=== PATIENT | female | born 1965 | race Caucasian/White ===

== ENCOUNTER 2020-02-12 18:40 | Emergency (ER) | payer BC ==
[~2020-02-12] VITALS: Ht 160 cm; Wt 78.9 kg
[2020-02-12] MEDS ORDERED: LIPITOR 40 MG T40 M1 PO (18:45)
[2020-02-12] MEDS ORDERED: TRIAMTERENE/HCT1 CA1 PO (18:45)
[2020-02-12] MEDS ORDERED: DULOXETINE HCL60 MG PO (18:45)
[2020-02-12] MEDS ORDERED: METOPROLOL SUCC50 MG PO (18:45)
[2020-02-12] MEDS ORDERED: OMEPRAZOLE40 MG PO (18:45)
[2020-02-12] MEDS ORDERED: ALPRAZOLAM1 MG PO (18:46)
[2020-02-12] MEDS ORDERED: VYVANSE60 MG PO (18:46)
[2020-02-12] MEDS ORDERED: IBUPROFEN 600600 M1 PO (20:34)
[2020-02-12 20:40] VITALS: BP 133/55
== END 2020-02-12 20:40 | disposition home or self-care (01) ==
LOC: ER 18:40
DX: S80.211A Abrasion, right knee, initial encounter (principal); S50.311A Abrasion of right elbow, initial encounter; S60.511A Abrasion of right hand, initial encounter; M79.672 Pain in left foot; I10 Essential (primary) hypertension; Z79.899 Other long term (current) drug therapy; Z91.041 Radiographic dye allergy status; W01.0XXA Fall on same level from slipping, tripping and stumbling without subsequent striking against object, initial encounter; Y93.89 Activity, other specified; Y92.89 Other specified places as the place of occurrence of the external cause; Y99.8 Other external cause status

== ENCOUNTER 2021-01-27 12:35 | Emergency (ER) | payer BC ==
[~2021-01-27] VITALS: Ht 160 cm; Wt 82.1 kg
[~2021-01-27 12:35] MED LIST: ALPRAZOLAM1 MG PO; DULOXETINE HCL60 MG PO; IBUPROFEN 600600 M1 PO; LIPITOR 40 MG T40 M1 PO; METOPROLOL SUCC50 MG PO; OMEPRAZOLE40 MG PO; TRIAMTERENE/HCT1 CA1 PO; VYVANSE60 MG PO
[2021-01-27 12:42] VITALS: BP 121/65
[2021-01-27 13:46] LABS: ABSOLUTE NEUTROPHILS 7.2 thou/uL (1.4-8.2); BASOPHILS 0.5 % (0.0-2.0); EOSINOPHILS 2.2 % (0.0-3.0); HEMATOCRIT 43.4 % (37.0-47.0); HEMOGLOBIN 14.6 gm/dL (12.0-15.0); LYMPHOCYTES 17.5 % (24.0-44.0); MCH 28.7 pg (26.0-34.0); MCHC 33.6 g/dL (28.0-37.0); MCV 85.5 fL (80.0-100.0); MONOCYTES 8.7 % (1.0-8.0); PLATELET COUNT 232 thou/uL (150-400); POLYS 71.1 % (36.0-66.0); RBC 5.07 mil/uL (4.20-5.00); RDW 12.9 % (10.5-14.5); WBC 10.2 thou/uL (4.0-11.0)
[2021-01-27 13:55] LABS: CREATININE 0.7 mg/dL (0.6-1.0); POTASSIUM 3.7 mmol/L (3.5-5.1)
[2021-01-27 14:01] LABS: ALBUMIN 3.6 g/dL (3.4-5.0); TOTAL BILIRUBIN 0.5 mg/dL (0.2-1.0); TOTAL PROTEIN 7.3 g/dL (6.4-8.2)
[2021-01-27] MEDS ORDERED: PROAIR HFA8.5 GM INH (14:29)
[2021-01-27] MEDS ORDERED: ZPAK PO (14:29)
[2021-01-27] MEDS ORDERED: TESSALON PERLE100 MG PO (14:29)
== END 2021-01-27 14:29 | disposition home or self-care (01) ==
LOC: ER 12:35
PROVIDERS: Emergency Medicine; Nurse Practitioner
DX: J18.9 Pneumonia, unspecified organism (principal); Z20.822 Contact with and (suspected) exposure to COVID-19; I10 Essential (primary) hypertension; F32.9 Major depressive disorder, single episode, unspecified; F41.9 Anxiety disorder, unspecified; Z79.1 Long term (current) use of non-steroidal anti-inflammatories (NSAID); Z79.891 Long term (current) use of opiate analgesic; Z79.899 Other long term (current) drug therapy; Z91.041 Radiographic dye allergy status